=== PATIENT | female | born 1990 | race Caucasian/White ===

== ENCOUNTER 2016-06-27 11:15 | Emergency (ER) | payer OTHER ==
[2016-06-27 11:24] VITALS: BP 141/62
--- NOTE | 2016-06-27 12:10 | ED Physician Documentation ---
PD HPI UPPER EXT INJURY - Stated complaint Stated Complaint: PARROT BITE/FINGER - Chief complaint Chief Complaint: Ext Problem - History obtained from History obtained from: Patient - History of Present Illness Location: Other (This is a right-handed woman who is up-to-date on tetanus, works at an [employer], was bit to the right hand earlier today.) Review of Systems Constitutional: reports: Reviewed and negative Cardiac: reports: Reviewed and negative Respiratory: reports: Reviewed and negative : denies: Now [facility] PD PAST MEDICAL HISTORY - Past Medical History Past Medical History: No - Past Surgical History Past Surgical History: No - Present Medications Home Medications: Ambulatory Orders Medication Instructions Recorded Confirmed Doxycycline Hyclate 100 mg PO BID #14 tablet 06/27/16 - Allergies Allergies/Adverse Reactions: Allergies Allergy/AdvReac Type Severity Reaction Status Date / Time No Known Drug Allergies Allergy Verified 06/27/16 11:24 - Social History Does the pt smoke?: No Smoking Status: Never smoker Does the pt drink ETOH?: No Does the pt have substance abuse?: No - Immunizations Immunizations are current?: Yes PD ED PE NORMAL - Vitals Vital signs reviewed: Yes - General General: Alert and oriented X 3, No acute distress - Extremities Extremities: Other (There are dorsal and palmar puncture wounds to the second finger at the distal phalanx, and no involvement of the nailbed. There is also another puncture over the first metacarpal, no significant tenderness or limited range of motion.) - Neuro Neuro: Alert and oriented X 3, Normal speech - Psych Psych: Normal mood, Normal affect Results - Vitals Vitals: Vital Signs - 24 hr 06/27/16 06/27/16 11:21 12:32 Temperature 37.0 C Heart Rate 82 82 Respiratory 16 Rate Blood Pressure 141/62 H O2 Saturation 99 99 Oxygen O2 Source Room air - Rads (name of study) 3 views right-hand Radiology: EMP read contemporaneously (normal) PD MEDICAL DECISION MAKING - ED course ED course: Review of online literature suggests that doxycycline would be the best coverage for her bite associated mirna. Departure - Departure Disposition: 01 Home, Self Care Clinical Impression: Bitten by parrot Qualifiers: Encounter type: initial encounter Qualified Code(s): W61.01XA - Bitten by parrot, initial encounter Condition: Good Record reviewed to determine appropriate education?: Yes Instructions: ED Bite Animal General Prescriptions: Doxycycline Hyclate 100 mg PO BID #14 tablet Comments: Wash your puncture wounds with soap and water daily and then blot dry, keep them covered with a bandage and don't get them wet at work. Return for signs of infection including fever, swelling, drainage, increased pain, redness. Discharge Date/Time: 06/27/16 12:37
[2016-06-27] MEDS ORDERED: DOXYCYCLINE 100 MG TABLET PO ONE (12:21)
[2016-06-27] MEDS: DOXYCYCLINE 100 MG TABLET PO STA (12:23)
--- NOTE | 2016-06-27 12:52 | XRAY Preliminary Report ---
Exam: XR Hand 3 View RT IMPRESSION: Normal hand radiography. [facility] SITE ID: [id number]
--- NOTE | 2016-06-27 12:54 | XRAY Report ---
EXAM: Right/Left Hand Radiography EXAM DATE: 06/27/2016 12:23 PM. CLINICAL HISTORY: Parrot bite distal 2nd finger and hand. COMPARISON: None. TECHNIQUE: 3 views. FINDINGS: Bones: Normal. No fractures or bone lesions. Joints: Normal. No subluxations. Soft Tissues: Normal. No soft tissue swelling. IMPRESSION: Normal hand radiography. [facility] Referring Provider Line: [phone] SITE ID: [id number]
== END 2016-06-27 12:37 | disposition home or self-care (01) ==
LOC: ED 11:15
DX: S61.230A Puncture wound without foreign body of right index finger without damage to nail, initial encounter (principal); W61.01XA Bitten by parrot, initial encounter; Y92.89 Other specified places as the place of occurrence of the external cause; Y99.0 Civilian activity done for income or pay
CPT/HCPCS: 99283

== ENCOUNTER 2016-10-02 15:22 | Emergency (ER) | payer MEDICAID, OTHER ==
[2016-10-02] MEDS ORDERED: cefTRIAXone 1 GM VIAL IM STA (17:27)
[2016-10-02] MEDS ORDERED: cefTRIAXone 1 GM VIAL ONE (17:37)
[2016-10-02] MEDS ORDERED: LIDOCAINE 2% ABBOJECT 100 MG/5 ML SYRINGE ONE (17:37)
[2016-10-02] MEDS ORDERED: LIDOCAINE 1% 2 ML VIAL ONE (17:37)
== END 2016-10-02 18:00 | disposition home or self-care (01) ==
DX: N12 Tubulo-interstitial nephritis, not specified as acute or chronic (principal); R03.0 Elevated blood-pressure reading, without diagnosis of hypertension